=== PATIENT | female | born 1960 | race Two or more races ===

== ENCOUNTER 2019-06-12 07:41 | Day surgery (SDC) | payer OTHER ==
[~2019-06-12] VITALS: Ht 167.6 cm; Wt 58.1 kg
[2019-06-12] VITALS (8 sets, daily range): BP systolic 94–113; BP diastolic 48–71
--- NOTE | 2019-06-12 08:13 | Anethesia Preoperative Eval ---
Anesthesia Pre-op PMH/ROS General Date of Evaluation: Jun 12, 2019 Anesthesiologist: Osmani ASA Score: ASA 2 Mallampati Score Class I : Soft palate, uvula, fauces, pillars visible Class II: Soft palate, uvula, fauces visible Class III: Soft palate, base of uvula visible Class IV: Only hard plate visible Mallampati Classification: Class I Surgeon: Rosa Diagnosis: GERD, screening Surgical Procedure: EGD and colonoscopy Anesthesia History: none Family History: no anesthesia problems Allergies: Coded Allergies: No Known Allergies (Unverified , 06/12/19) Medications: see eMAR Patient NPO?: Yes NPO Date: Jun 12, 2019 NPO Time: 00:00 Past Medical History Cardiovascular: Denies: HTN, CAD, [place], valve dz, arrhythmia, other Pulmonary: Denies: asthma, COPD, DANIEL, other Gastrointestinal/Genitourinary: Reports: GERD; Denies: CRI, ESRD, other Neurologic/Psychiatric: Denies: dementia, CVA, depression/anxiety, TIA, other Endocrine: Denies: DM, hypothyroidism, steroids, other HEENT: Denies: cataract (L), cataract (R), glaucoma, [place]UEVI (L), [place]VI (R), other Hematology/Immune: Denies: anemia, DVT, bleeding disorder, other Musculoskeletal/Integumentary: Denies: OA, RA, DJD, DDD, edema, other Anesthesia Pre-op Phys. Exam Physician Exam see chart Constitutional: NAD Cardiovascular: RRR Respiratory: CTA Airway Exam Mallampati Score: Class I MO: full ROM: full Anesthesia Pre-op A/P Labs see chart Studies Pre-op Studies: EKG - sr Risk Assessment & Plan Assessment: ASA II Plan: MAC Status Change Before Surgery: No Pre-Antibiotics Drug: N/A Shereen Vazquez MD Jun 12, 2019 08:13
[2019-06-12] MEDS ORDERED: KLONOPIN0.5 MG ORAL (08:25)
[2019-06-12] MEDS ORDERED: LR 1000ml 1,000 ML IVLG SCH (08:27)
[2019-06-12] MEDS ORDERED: DiphenhydrAMINE 50mg/ml Inj IVP PRN (08:30)
[2019-06-12] MEDS ORDERED: Lidocaine 1% MPF 10mg/ml 5ml ONE (09:00)
[2019-06-12] MEDS ORDERED: LR 1000ml ONE (09:00)
[2019-06-12] MEDS ORDERED: Propofol 200mg/20ml IV ONE (09:00)
--- NOTE | 2019-06-12 09:05 | Short Stay Surgery H&P ---
History of Present Illness History of Present Illness Chief Complaint see typed H&P HPI Darcy Guevara is a 58 year old female who was admitted on for Abdominal Pain, Colon Screening Patient History Allergies: Coded Allergies: No Known Allergies (Unverified , 06/12/19) Medication History Scheduled Clonazepam* (Klonopin*), 0.5 MG ORAL QHS, (Reported) Physical Exam Vital Signs Last Vital Signs Date Time Temp Pulse Resp B/P (MAP) Pulse Ox O2 Delivery O2 Flow Rate FiO2 06/12/19 08:26 Room Air 06/12/19 08:20 97.6 56 18 109/70 98 Plan Attestation Are the patient's medical conditions optimized for surgery? Fely Lee MD Jun 12, 2019 09:05
--- NOTE | 2019-06-12 09:06 | Pre-Procedure Note/Attestation ---
Pre-Procedure Note/Attestation Complete Prior to Procedure Planned Procedure: not applicable Procedure Narrative: EGD colon Indications for Procedure Pre-Operative Diagnosis: diarrhea, abd pain, screening Attestation I attest that I discussed the nature of the procedure; its benefits; risks and complications; and alternatives (and the risks and benefits of such alternatives ), prior to the procedure, with the patient (or the patient's legal marketing representative). I attest that, if there was a reasonable possibility of needing a blood transfusion, the patient (or the patient's legal marketing representative) was given the [facility] standardized written summary, pursuant to the Ruddy Robbin Blood Safety Act ([place] Health and Safety Code # 1645, as amended). I attest that I re-evaluated the patient just prior to the surgery and that there has been no change in the patient's H&P, except as documented below: Fely Lee MD Jun 12, 2019 09:06
--- NOTE | 2019-06-12 09:47 | 48 Hour Post Anesthesia Eval ---
Post Anesthesia Evaluation Procedure: EGD and colonoscopy Date of Evaluation: Jun 12, 2019 Airway: patent Nausea: No Vomiting: No Pain Intensity: 0 Hydration Status: adequate Cardiopulmonary Status: at basleine Mental Status/LOC: patient returned to baseline Post-Anesthesia Complications: 0 Follow-up care needed: ready to discharge Shereen Vazquez MD Jun 12, 2019 09:47
--- NOTE | 2019-06-12 09:47 | Immediate Post-Op Evaluation ---
Immediate Post-Op Evalulation Immediate Post-Op Evalulation Procedure: EGD and colonoscopy Date of Evaluation: Jun 12, 2019 Time of Evaluation: 09:47 IV Fluids: 400 Blood Products: 0 Estimated Blood Loss: 0 Urinary Output: 0 Blood Pressure Systolic: 118 Blood Pressure Diastolic: 70 Pulse Rate: 50 Respiratory Rate: 16 O2 Sat by Pulse Oximetry: 100 Temperature (Fahrenheit): 97.7 Pain Score (1-10): 0 Nausea: No Vomiting: No Complications 0 Patient Status: awake, reacts, patent, none Hydration Status: adequate Drug: N/A Shereen Vazquez MD Jun 12, 2019 09:47
--- NOTE | 2019-06-12 15:00 | Operative Note - Dictated ---
DATE OF OPERATION: 06/12/2019 GASTROENTEROLOGY PROCEDURE REPORT PROCEDURE: Upper gastrointestinal endoscopy with biopsy as well as colonoscopy with biopsy. SURGEON: Fely Lee M.D. ANESTHESIA: Please see the separate anesthesiologist notes for details. PRE-ENDOSCOPIC DIAGNOSES: Abdominal pain, diarrhea, and need for screening colonoscopy. POST-ENDOSCOPIC DIAGNOSES: Normal upper and lower endoscopy. Status post random biopsies of the duodenum, antrum, terminal ileum, right colon, and left colon. DESCRIPTION OF PROCEDURE: The procedure, its risks, indications, alternatives, and possible complications were explained and informed consent was obtained. The diagnostic upper endoscope was introduced through the oropharynx and advanced to the duodenum. It was gradually withdrawn and then the colonoscope was introduced in the rectum after rectal exam was done and advanced to the terminal ileum. The colonoscope was then gradually withdrawn. Biopsies were obtained as listed above. No mucosal abnormalities were identified. The colonoscope was removed. The patient was sent to recovery in good condition. COMPLICATIONS: None. RECOMMENDATIONS: 1. Follow up biopsy results. 2. Resume oral diet. 3. Outpatient followup. Fely Lee M.D. DR: SAI JOB#: [id number] CC:
== END 2019-06-12 10:45 | disposition home or self-care (01) ==
LOC: GAS 07:41
DX: Z12.11 Encounter for screening for malignant neoplasm of colon (principal); R10.9 Unspecified abdominal pain; K29.80 Duodenitis without bleeding; K29.70 Gastritis, unspecified, without bleeding; B96.81 Helicobacter pylori [H. pylori] as the cause of diseases classified elsewhere; K21.9 Gastro-esophageal reflux disease without esophagitis
CPT/HCPCS: 43239; 45380; J2704; J7120; 94003; 94150